=== PATIENT | male | born 1970 | race Caucasian/White ===

== ENCOUNTER 2016-12-09 09:27 | Day surgery (SDC) | payer BC ==
[2016-12-07 14:08] VITALS: BMI 27.1
[2016-12-09] MEDS ORDERED: BUPIVACAINE HCL/PF 2.5 MG/ML - 30 ML VIAL IJ ONE (10:38)
[2016-12-09] MEDS ORDERED: DEXAMETHASONE SOD PHOSPHATE/PF 10 MG/ML SDV ONE (10:46)
[2016-12-09] MEDS ORDERED: ROPIVACAINE HCL 0.5% 30ML VIAL ONE ×2 (10:47→11:02)
[2016-12-09] MEDS ORDERED: MIDAZOLAM HCL 2 MG/2 ML SINGLE DOSE VIAL ONE ×2 (10:47→11:10)
[2016-12-09] MEDS ORDERED: PROPOFOL 20 ML ONE (11:29)
[2016-12-09] MEDS ORDERED: oxyCODONE HCL 5 MG TABLET PO PRN ×2 (12:35)
[2016-12-09] MEDS ORDERED: ACETAMINOPHEN 325 MG TABLET (FP) PO SCH (12:45)
[2016-12-09] MEDS ORDERED: BACITRACIN/POLYMYXIN OPH OINT 3.5 GM TUBE ONE (14:41)
[2016-12-09 15:29] VITALS: PULSE 80; TEMP 98.3
[2016-12-09 15:31] VITALS: BP 125/78
[2016-12-09] MEDS ORDERED: oxyCODONE HCL 10 MG SUSTAINED ACTING TABLET PO SCH (22:00)
--- NOTE | 2016-12-12 09:07 | OP ---
DATE OF OPERATION: 12/09/2016 SURGEON: Bill Knutson MD [employer] SELLER: RASHAUN Valles PREOPERATIVE DIAGNOSIS: Left Achilles tendon rupture. POSTOPERATIVE DIAGNOSIS: Left Achilles tendon rupture. PROCEDURE: Open repair of left Achilles tendon. FINDINGS: Ruptured Achilles tendon, proximal third of Achilles. PROCEDURE: Informed consent was obtained. Patient was taken to the operating room where the left lower extremity was prepped and draped in the sterile fashion. Tourniquet was placed on the upper leg and inflated to 300 mmHg. Incision was made along the area of the Achilles tendon, identifying the tendon and peritenon was incised. The necrotic ends were debrided. No. 5 Ethibond was used in an interlocking stitch, Krackow-type, which was done on the proximal distal portion to secure centrally. This was then oversewn with No. 2 FiberWire circumferentially around the Achilles tendon. Wound was irrigated. closed with 0 Vicryl, 2-0 Vicryl, and valdo. Sterile dressing and a splint was placed. Patient was transferred to the recovery room without complication. BILL KNUTSON M.D. [id number]
== END 2016-12-09 14:00 | disposition home or self-care (01) ==
LOC: FASU 09:27
PROVIDERS: ATTEND Orthopaedic Surgery
PROC: 0LQP0ZZ Repair Left Lower Leg Tendon, Open Approach (ICD-10-PCS; principal; 2016-12-09 11:56)
DX: S86.012A Strain of left Achilles tendon, initial encounter (principal); X58.XXXA Exposure to other specified factors, initial encounter; Y93.9 Activity, unspecified; Y92.9 Unspecified place or not applicable
CPT/HCPCS: 94760